=== PATIENT | female | born 2000 | race Caucasian/White ===

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

== ENCOUNTER 2021-10-01 05:07 | Inpatient (IN) | payer OTHER, BC ==
[~2021-10-01 05:07] MED LIST: Bupivacaine 0.25% 10 ML SDV ONE
[2021-10-01] MEDS ORDERED: Ampicillin 2 GM in Sodium Chloride 0.9% 100 ML IV ONE (05:59)
[2021-10-01] MEDS ORDERED: Nalbuphine HCl 10 MG/ 1ML Amp IVPUSH PRN (05:59)
[2021-10-01] MEDS ORDERED: Sodium Chloride 0.9% 10 ML Syringe FLUSH PRN (05:59)
[2021-10-01] MEDS: Lactated Ringers 1,000 ML IV SCH ×3 (06:30→11:02)
[2021-10-01] MEDS ORDERED: Bupivacaine/fentaNYL/NS 100 ML Bag EPIDUR PRN (08:00)
[2021-10-01] MEDS ORDERED: diphenhydrAMINE 50 MG/ML SDV IVPUSH PRN (08:00)
[2021-10-01] MEDS ORDERED: ePHEDrine 50 MG/ML SDV IVPUSH PRN (08:00)
[2021-10-01] MEDS ORDERED: fentaNYL 100 MCG/2 ML SDV EPIDUR PRN (08:00)
[2021-10-01] MEDS ORDERED: Sodium Chloride 0.9% 10 ML Syringe FLUSH SCH (09:00)
[2021-10-01] MEDS: Ampicillin 1 GM in Sodium Chloride 0.9% 100 ML IV SCH ×2 (10:36→14:36)
[2021-10-01] MEDS ORDERED: Oxytocin/Lactated Ringers 10 UNIT/1,000 ML BAG IV SCH ×2 (14:00→17:15)
[2021-10-01] MEDS ORDERED: Lidocaine 1% 50 ML MDV ONE (15:51)
[2021-10-01] MEDS ORDERED: Docusate Sodium 100 MG Cap PO PRN (16:10)
[2021-10-01] MEDS ORDERED: Acetaminophen 325 MG Tab PO PRN (16:10)
[2021-10-01] MEDS ORDERED: Witch Hazel Medicated Pads 40/Jar TOP PRN (16:10)
[2021-10-01] MEDS ORDERED: Benzocaine/Menthol 20%-0.5% Spray 78 GM Cannister TOP PRN (16:10)
[2021-10-01] MEDS ORDERED: Lidocaine 1% 50 ML MDV INJECT SCH (16:46)
[2021-10-01] MEDS: Ibuprofen 600 MG Tab PO PRN (18:02)
[2021-10-02] MEDS ORDERED: Prenatal Multivitamin with Calcium/Folic Acid/Iron Tab PO SCH (09:00)
[2021-10-02 15:01] VITALS: BP 125/66; PULSE 86
[2021-10-02] MEDS: Ibuprofen 600 MG Tab PO PRN (16:31)
== END 2021-10-02 18:12 | disposition home or self-care (01) | DRG 807 ==
LOC: JD.OBCHECK 05:07 → JD.OB 05:59 → OBSVTOIN 15:43 → JD.OB 15:43
PROVIDERS: ADMIT Obstetrics & Gynecology; ATTEND Obstetrics & Gynecology
PROC: 10E0XZZ Delivery of Products of Conception, External Approach (ICD-10-PCS; principal; 2021-10-01)
PROC: 10907ZC Drainage of Amniotic Fluid, Therapeutic from Products of Conception, Via Natural or Artificial Opening (ICD-10-PCS; 2021-10-01)
PROC: 3E0R3BZ Introduction of Anesthetic Agent into Spinal Canal, Percutaneous Approach (ICD-10-PCS; 2021-10-01)
PROC: 00HU33Z Insertion of Infusion Device into Spinal Canal, Percutaneous Approach (ICD-10-PCS; 2021-10-01)
PROC: 0HQ9XZZ Repair Perineum Skin, External Approach (ICD-10-PCS; 2021-10-01)
PROC: 4A1HXCZ Monitoring of Products of Conception, Cardiac Rate, External Approach (ICD-10-PCS; 2021-10-01)
DX: O99.824 Streptococcus B carrier state complicating childbirth (principal); Z37.0 Single live birth; Z3A.39 39 weeks gestation of pregnancy; O71.82 Other specified trauma to perineum and vulva
CPT/HCPCS: 36415; 51703; 59025; 59409; 85025; 86592; A9270-GY; J0290; J2001; J2300; J2590; J3010; J3490; J7120